=== PATIENT | male | born 2005 | race Caucasian/White ===

== ENCOUNTER 2024-08-29 11:56 | Emergency (ER) | payer SELFPAY ==
[~2024-08-29] VITALS: Ht 167.6 cm; Wt 72.6 kg
[2024-08-29] MEDS ORDERED: Triamcinolone Inj Susp 40 MG / ML 1ML Vial IM ONE (12:45)
[2024-08-29] MEDS ORDERED: PRED20 PO (12:50)
== END 2024-08-29 12:53 | disposition home or self-care (01) ==
LOC: ER 11:56
DX: L25.5 Unspecified contact dermatitis due to plants, except food (principal)
CPT/HCPCS: 96372; 99282-25; J3301

== ENCOUNTER 2025-03-30 12:56 | Emergency (ER) | payer MEDICAID ==
[~2025-03-30] VITALS: Ht 172.7 cm; Wt 83.9 kg
[~2025-03-30 12:56] MED LIST: PRED20 PO
== END 2025-03-30 14:22 | disposition home or self-care (01) ==
LOC: ER 12:56
DX: S01.111A Laceration without foreign body of right eyelid and periocular area, initial encounter (principal); W22.8XXA Striking against or struck by other objects, initial encounter; Y93.G1 Activity, food preparation and clean up
CPT/HCPCS: 12011; 90715; 99282-25